=== PATIENT | female | born 1990 | race Two or more races ===

== ENCOUNTER 2017-10-17 11:54 | Emergency (ER) | payer OTHER ==
[~2017-10-17] VITALS: Ht 157.5 cm; Wt 93.9 kg
[2017-10-17 12:03] VITALS: Ht 157.5 cm; Wt 93.9 kg
[2017-10-17 14:18] VITALS: BP 114/68
== END 2017-10-17 14:00 | disposition home or self-care (01) ==
LOC: ED 11:54
DX: J11.1 Influenza due to unidentified influenza virus with other respiratory manifestations (principal); Z88.5 Allergy status to narcotic agent
CPT/HCPCS: Q0162

== ENCOUNTER 2018-02-01 14:08 | Emergency (ER) | payer OTHER ==
[~2018-02-01] VITALS: Ht 160 cm; Wt 93.4 kg
[2018-02-01 14:19] VITALS: Ht 160 cm; Wt 93.4 kg
[2018-02-01 15:59] VITALS: BP 102/48
== END 2018-02-01 14:31 | disposition home or self-care (01) ==
LOC: ED 14:08
DX: S93.401A Sprain of unspecified ligament of right ankle, initial encounter (principal); Z88.5 Allergy status to narcotic agent; Z88.6 Allergy status to analgesic agent; X58.XXXA Exposure to other specified factors, initial encounter; Y93.89 Activity, other specified; Y92.89 Other specified places as the place of occurrence of the external cause; Y99.8 Other external cause status
CPT/HCPCS: J1885; Q0092

== ENCOUNTER 2019-11-15 07:10 | Emergency (ER) | payer SELFPAY ==
[~2019-11-15] VITALS: Ht 157.5 cm; Wt 81.6 kg
[2019-11-15 07:36] VITALS: Ht 157.5 cm; Wt 81.6 kg
[2019-11-15 09:52] VITALS: BP 121/70
== END 2019-11-15 09:52 | disposition home or self-care (01) ==
LOC: ED 07:10
DX: M25.561 Pain in right knee (principal); M25.571 Pain in right ankle and joints of right foot; Z88.6 Allergy status to analgesic agent; Z88.5 Allergy status to narcotic agent; Z98.890 Other specified postprocedural states; W10.9XXA Fall (on) (from) unspecified stairs and steps, initial encounter; Y93.89 Activity, other specified; Y92.89 Other specified places as the place of occurrence of the external cause; Y99.8 Other external cause status
CPT/HCPCS: J1885; Q0092